=== PATIENT | male | born 1970 | race Caucasian/White ===

== ENCOUNTER 2020-07-31 10:25 | Outpatient (CLI) | payer OTHER, SELFPAY ==
--- NOTE | 2020-07-31 | ECG_ITS ---
Measurements Intervals [place] Rate: 58 P: 72 NC: 158 QRS: 77 QRSD: 84 T: 44 QT: 359 QTc: 355 Interpretive Statements SINUS BRADYCARDIA PEAKED T WAVES- CONSIDER HYPERKALEMIA OR ISCHEMIA ABNORMAL ECG Electronically Signed On 07-31-2020 12:19:16 CDT by Davidson Sanford D.O.
--- NOTE | 2020-07-31 | EST_ITS ---
Patient Info Name: Bk Mckinney Age: 49 years : 1970 Gender: Male HR: 60 bpm BP: 114 / 73 mmHg Heart Rhythm: Sinus Rhythm Exam Date: 07/31/2020 11:06 AM Exam Location: [facility] Stress Patient Status: Outpatient Admit Date: 07/31/2020 Staff Ordering Physician: Valeriano Torres MD Attending Provider: Valeriano Torres MD Exercise Technologist: Olive Bruce CT Exercise Physician: Davidson Sanford DO Exam Type: CA stress test treadmill Study Info Indications - MEDICATION CHANGE, FAMILY HISTORY An exercise stress test was performed. Summary 1. 1. Negative Talha exercise stress test for ischemic ST changes by ECG criteria. 2. 2. Good functional capacity, achieving 11 METs of workload. 3. 3. Appropriate HR response to exercise. 4. 4. Appropriate HR recovery at 1 minute post exercise. 5. 5. No imaging with stress testing. 6. 6. Patient informed of the above results. Protocol: Talha Rest HR: 60 bpm Peak HR: 154 bpm Rest Sys BP: 114 mmHg Peak Sys BP: 180 mmHg Max Pred HR: 169 bpm % Max Pred HR: 91 % Target HR: 144 bpm Max RPP: 27,720 bpm*mmHg Termination Reason: Reached target heart rate or workload Cardiac Symptoms: Shortness of breath Max ST Seg Deviation: -2.30 mm Total Time: 9 min : 43 sec Rest [place] BP: 73 mmHg Peak [place] BP: 88 mmHg Total METS: 11.5 Resting ECG Sinus rhythm. Stress ECG No ST changes. Arrhythmias None. Report Signatures
== END 2020-07-31 10:26 | disposition home or self-care (01) ==
PROVIDERS: PCP Internal Medicine; Visit Provider Internal Medicine
DX: R07.89 Other chest pain (principal); R00.1 Bradycardia, unspecified; Z82.49 Family history of ischemic heart disease and other diseases of the circulatory system
CPT/HCPCS: 93005; 93017

== ENCOUNTER 2021-06-14 12:16 | Outpatient (CLI) | payer BC, SELFPAY ==
--- NOTE | ~2021-06-14 | US_ITS ---
US right upper quadrant INDICATION: Abdominal pain PROCEDURE: Realtime right upper abdominal ultrasound. COMPARISON: No prior studies for comparison. FINDINGS: The pancreas is normal without focal mass or pancreatic ductal dilation. Liver echotexture is normal without focal mass or intrahepatic biliary dilatation. There is normal directional flow i n the portal vein. The gallbladder is normal without stones, gallbladder wall thickening or pericholecystic fluid. Comm on bile duct measures 3.3 mm. No sonographic Gaona's sign. IMPRESSION: 1: Normal limited abdominal ultrasound. Reviewed, dictated and finalized at location A. STRIAL CHEMIST
== END 2021-06-14 12:17 ==
PROVIDERS: Visit Provider Internal Medicine
DX: R10.11 Right upper quadrant pain (principal)
CPT/HCPCS: 76705

== ENCOUNTER 2021-06-22 08:40 | Outpatient (CLI) | payer BC, SELFPAY ==
--- NOTE | 2021-06-22 | EST_ITS ---
Patient Info Name: Bk Mckinney Age: 50 years : 1970 Gender: Male Ht: 66 in Wt: 135 lbs BSA: 1.69 m2 HR: 63 bpm BP: 133 / 86 mmHg Heart Rhythm: Sinus Rhythm Exam Date: 06/22/2021 9:14 AM Exam Location: [facility] Stress Patient Status: Outpatient Admit Date: 06/22/2021 Staff Ordering Physician: Valeriano Torres MD Attending Provider: Valeriano Torres MD Exercise Technologist: Olive Bruce CT Exercise Physician: Davidson Sanford DO Exam Type: CA stress test treadmill Study Info Indications R07.9 - Chest pain, unspecified A treadmill exercise stress test was performed. Summary 1. 1. Negative Talha exercise stress test for ischemic ST changes by ECG criteria. 2. 2. Reduced functional capacity, achieving 9 METs of workload. 3. 3. Appropriate HR response to exercise. 4. 4. Appropriate HR recovery at 1 minute post exercise. 5. 5. No imaging with stress testing. 6. 6. Patient informed of the above results. Protocol: Talha Stress ECG Details Stage: REST Duration (min): 0 min : 56 sec Speed (mph): 0.0 Grade (%): 0 HR (bpm): 64 SBP (mmHg): 133 DBP (mmHg): 86 METS: --- Stage: REST Duration (min): 5 min : 40 sec Speed (mph): 0.0 Grade (%): 0 HR (bpm): 72 SBP (mmHg): 133 DBP (mmHg): 86 METS: --- Stage: STAGE 1 Duration (min): 1 min : 0 sec Speed (mph): 1.7 Grade (%): 10 HR (bpm): 93 SBP (mmHg): 133 DBP (mmHg): 86 METS: --- Stage: STAGE 1 Duration (min): 2 min : 0 sec Speed (mph): 1.7 Grade (%): 10 HR (bpm): 103 SBP (mmHg): 133 DBP (mmHg): 86 METS: --- Stage: STAGE 1 Duration (min): 3 min : 0 sec Speed (mph): 1.7 Grade (%): 10 HR (bpm): 100 SBP (mmHg): 142 DBP (mmHg): 74 METS: --- Stage: STAGE 2 Duration (min): 1 min : 0 sec Speed (mph): 2.5 Grade (%): 12 HR (bpm): 115 SBP (mmHg): 142 DBP (mmHg): 74 METS: --- Stage: STAGE 2 Duration (min): 2 min : 0 sec Speed (mph): 2.5 Grade (%): 12 HR (bpm): 120 SBP (mmHg): 153 DBP (mmHg): 73 METS: --- Stage: STAGE 2 Duration (min): 3 min : 0 sec Speed (mph): 2.5 Grade (%): 12 HR (bpm): 133 SBP (mmHg): 153 DBP (mmHg): 73 METS: --- Stage: STAGE 3 Duration (min): 1 min : 0 sec Speed (mph): 3.4 Grade (%): 14 HR (bpm): 142 SBP (mmHg): 146 DBP (mmHg): 76 METS: --- Stage: STAGE 3 Duration (min): 1 min : 10 sec Speed (mph): 3.4 Grade (%): 14 HR (bpm): 145 SBP (mmHg): 146 DBP (mmHg): 76 METS: --- Stage: RECOVERY Duration (min): 0 min : 49 sec Speed (mph): 0.0 Grade (%): 0 HR (bpm): 138 SBP (mmHg): 146 DBP (mmHg): 76 METS: --- Stage: RECOVERY Duration (min): 1 min : 49 sec Speed (mph): 0.0 Grade (%): 0 HR (bpm): 116 SBP (mmHg): 146 DBP (mmHg): 76 METS: ---
== END 2021-06-22 08:41 | disposition home or self-care (01) ==
LOC: ANHCARD 08:48
PROVIDERS: PCP Internal Medicine; Visit Provider Internal Medicine
DX: R07.89 Other chest pain (principal)
CPT/HCPCS: 93017

== ENCOUNTER 2021-09-24 16:57 | Outpatient (CLI) | payer BC, SELFPAY ==
--- NOTE | ~2021-09-24 | XR_ITS ---
EXAM: XR hip RT min 2V DATE: 09/24/2021 17:36 HISTORY: ACUTE RIGHT SIDED LOW BACK PAIN WITH RIGHT SIDED SCIATICA . COMPARISON: None available. FINDINGS: Normal mineralization. No fracture or dislocation. No lytic or blastic lesion. Superior ri ght hip joint space narrowing with femoral head osteophytosis. No erosion or periosteal change. Multi ple pelvic phleboliths. IMPRESSION: Moderate right hip osteoarthritis. Reviewed, dictated and finalized at location K.
--- NOTE | ~2021-09-24 | XR_ITS ---
EXAM: XR lumbar spine 2-3V DATE: 09/24/2021 17:36 HISTORY: RT SIDE LOW BACK PAIN, RT SIDE SCIATICA X 1 WEEK NO INJ . COMPARISON: None available. FINDINGS: 5 nonrib-bearing lumbar-type vertebral bodies. Pedicles intact. Normal vertebral body alig nment. Vertebral body heights preserved. Mild disc space narrowing at L4-5 and L5-S1. Multilevel ghassan inal osteophytosis. Multilevel facet sclerosis and interspinous narrowing. No fracture or dislocation . IMPRESSION: Lower lumbar degenerative disc disease and facet arthropathy. Reviewed, dictated and finalized at location K.
== END 2021-09-24 16:58 | disposition home or self-care (01) ==
PROVIDERS: PCP Internal Medicine; Visit Provider Internal Medicine
DX: M16.11 Unilateral primary osteoarthritis, right hip (principal); M47.27 Other spondylosis with radiculopathy, lumbosacral region
CPT/HCPCS: 72100; 73502

== ENCOUNTER 2021-10-04 16:31 | Outpatient (CLI) | payer BC, SELFPAY ==
--- NOTE | ~2021-10-04 | MR_ITS ---
EXAMINATION: MR lumbar spine wo con DATE: 10/04/2021 17:07 INDICATION: Acute right-sided low back pain with right-sided sciatica. TECHNIQUE: Magnetic resonance imaging (MRI) of the lumbar spine was performed without intravenous con trast. Sequences included sagittal T2-weighted FSE, sagittal T2-weighted FS FSE, sagittal T1-weighted FSE, and axial T2-weighted FSE. COMPARISON: Lumbar spine radiographs 09/24/2021 FINDINGS: Bone alignment is normal. Vertebral body heights and intervertebral disc heights are normal . There is moderately decreased disc height at L4-L5 and L5-S1 with endplate remodeling. The distal s homero cord signal intensity is normal. The conus medullaris is at L1-L2. The following disc levels ar e specifically discussed: L1-L2: The disc does not extend beyond the endplate margin. There is mild right and moderate left fac et joint osteoarthritis. There is no neural foraminal stenosis. There is no central canal stenosis. L2-L3: The disc does not extend beyond the endplate margin. There is moderate bilateral facet joint o steoarthritis. There is no neural foraminal stenosis. There is no central canal stenosis. L3-L4: The disc is bulging. There is moderate bilateral facet joint osteoarthritis. There is mild clara ateral neural foraminal stenosis. There is mild central canal stenosis. L4-L5: The disc is bulging and has an annular fissure. There is moderate right and severe left facet joint osteoarthritis. There is moderate bilateral neural foraminal stenosis. There is mild central ca nal stenosis. There is moderate stenosis of right lateral recess. L5-S1: The disc is bulging. There is mild bilateral facet joint osteoarthritis. There is no neural fo raminal stenosis. There is mild central canal stenosis. IMPRESSION: 1. Moderate lower lumbar spondylosis. Reviewed, dictated and finalized at location A.
== END 2021-10-04 16:32 | disposition home or self-care (01) ==
PROVIDERS: PCP Internal Medicine; Visit Provider Internal Medicine
DX: M54.41 Lumbago with sciatica, right side (principal); R53.83 Other fatigue; M47.817 Spondylosis without myelopathy or radiculopathy, lumbosacral region; M48.07 Spinal stenosis, lumbosacral region
CPT/HCPCS: 72148

== ENCOUNTER 2021-12-21 09:00 | Outpatient (RCR) | payer BC, MEDICAID, SELFPAY ==
--- NOTE | 2021-11-13 15:30 | PTOPEVAL ---
Thank you for referring Bk Mckinney to [facility].? He is scheduled to be seen for therapy? 2 x/week for 4 weeks. Please review, sign, date and return this plan of care [facility]. I agree with and certify that the following plan of care is medically necessary. Referring Physician Date Attending Provider: Valeriano Torres MD Outpatient Past Medical History Past Medical History Source of Past Medical History Recalled from Previous Visit, Confirmed with Patient/Family Neurological History Hx Migraine Yes: med Hx Seizures Yes: med control, not had in 7 yr Cardiovascular History Hx Cardiac Disorders No Significant History Respiratory History Hx COVID-19 Yes: hospitalized; Gastrointestinal History Hx Crohn's Disease Yes Musculoskeletal History Hx Musculoskeletal Disorders No Significant History Endocrine History Hx Endocrine Disorders No Significant History Psychosocial History Hx Other Psychiatric Disorders Yes: OCD, recovering alcoholic Other History Hx Cancer Yes: bladder - surgery 2019; colon cancer 2019; Hx Chemotherapy Yes: completed treatment 2 wk ago Hx Radiation Therapy Yes: completed Evaluation Information Diagnosis low back pain with R sciatica Onset September 26, 2021 Subjective Information post covid, pain and fatigue Query Text:As Reported By Patient/ over entire body; then pain R Family sciatica pain to foot; Diagnostic Tests MRI For This Problem Yes: lumbar bulging disc with facet OA Previous Treatments Previous Treatments For This Problem no PT treatment Prior Level of Function 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, 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
--- NOTE | 2021-11-22 09:03 | PCPTNOTE ---
Patient called & cancelled 2 scheduled appointment this date due to having back injection, and will return on 11/30/21.
--- NOTE | 2021-11-30 09:11 | PCPTNOTE ---
Patient called & cancelled scheduled appointment this date due to having a fever.
--- NOTE | 2021-12-07 13:21 | PTOPEVAL ---
PHYSICAL THERAPY RE-EVALUATION AND UPDATED PLAN OF CARE 12-06-21 Refer to the clinical summary below, for his status today, compared to the initial evaluation. The goals were partially achieved. Continue PT treatment 2x/wk for 4 weeks. Thank you for referring Bk Mckinney to [facility].? Please review, sign, date and return this updated plan of care [facility]. I agree with and certify that the following plan of care is medically necessary. Referring Physician Date Attending Provider: Valeriano Torres MD Subjective Information Bk reports: to have back Query Text:As Reported By Patient/ injections next week; am Family moving forward with improving my back; using the cane helps ; doing the exercises and they are helping; has returned to driving; want to continue therapy; Pain Assessment Pain Scale Pain Scale Used Numeric (1 - 10) Self Report Pain Assessment Right Back Pain Description Sharp Radicular Pain Location tingling in R distal-lateral calf- intermittent Pain Frequency Chronic,Continuous Lowest Pain Intensity 4 Greatest Pain Intensity 7 Pain Aggravating Factors Exercise/Activity,Walking, Weight Bearing/Standing Other Pain Aggravating Factors reported walk/stand tolerance of 2 hours; Additional Pain Score Comments Oswestry self assessment of 30% limitation in activity Interventions Used Interventions Used By Clinicians Education,Exercise Pain Relief Interventions Used By Exercise,Medication,Position Patient Change,Sitting Other Alleviating Interventions pain meds daily; stretch trunk forward, take deep breaths Lumbar ROM Comments standing trunk: flexion- fingers to below knee- without an increase in pain, any further reach- pain and stretch in R low back; Lower Extremity Range of Motion General Lower Extremity Range of Motion Gross Lower Extremity Range of Motion supine R hip flexion to 105'- Comments no pain increase, but 120'- increase back pain; IR increase pain; ER no pain increase; prone on elbows does not increase pain, stated feels good; Gross Lower Extremity Strength functional strength testing: - supine: SLR R 20 /L 20 reps; bridge - small lift x 20 reps - with full lift, increase
--- NOTE | 2021-12-07 13:29 | PCPTNOTE ---
pt was seen for PT 3x this week due to scheduling conflict and he was not able to make the original reeval appt next week due to dr appt and back injections, so reeval performed early and done this week/ today, causing the 3rd session for the week.
--- NOTE | 2021-12-24 13:16 | PCPTNOTE ---
Patient called & cancelled scheduled appointment this date due to being to sore from starting back to work.
--- NOTE | 2021-12-26 15:43 | PCPTNOTE ---
Patient called & cancelled scheduled appointment this date due to having hives/rash, and he was told by his Dr, to stay home to rest this afternoon.
--- NOTE | 2021-12-31 13:54 | PCPTNOTE ---
Patient called & cancelled scheduled appointment this date due to being admitted into the hospital.
--- NOTE | 2022-01-02 14:18 | PCPTNOTE ---
PHYSICAL THERAPY DISCHARGE 01-02-22 Attending Provider: Valeriano Torres MD Patient:kB cMkinney Date of :1970 Bk has received 9 PT sessions, for the diagnosis of low back pain, from November 13 to ; he then called/canceled 2 appointments, due to being ill. He called 12-31-21 and canceled all remaining appointments due to additional medical issues and referred to cancer dr in [facility]. The goals were not addressed. Thank you for referring Bk to [facility].
== END 2022-01-02 15:23 | disposition home or self-care (01) ==
LOC: ANHPT 09:00
PROVIDERS: PCP Internal Medicine; Visit Provider Internal Medicine
DX: M54.41 Lumbago with sciatica, right side (principal)
CPT/HCPCS: 97110; 97112; 97140; 97161

== ENCOUNTER 2021-12-27 15:47 | Outpatient (CLI) | payer BC, MEDICAID, SELFPAY ==
--- NOTE | ~2021-12-27 | XR_ITS ---
EXAMINATION: XR knee LT 2V DATE: 12/27/2021 16:22 INDICATION: Anterior left knee pain. TECHNIQUE: 2 views of left knee were obtained. COMPARISON: None. FINDINGS: Bone alignment is normal. No fracture. Joint spaces are well maintained. There is no knee j oint effusion. IMPRESSION: 1. Normal left knee. Reviewed, dictated and finalized at location A. IMPRESSION: 1. Normal left knee.
== END 2021-12-27 15:48 | disposition home or self-care (01) ==
PROVIDERS: PCP Internal Medicine; Visit Provider Internal Medicine
DX: M25.562 Pain in left knee (principal)
CPT/HCPCS: 73560

== ENCOUNTER 2022-01-16 11:32 | Outpatient (RCR) | payer BC, MEDICAID, SELFPAY ==
[2022-01-16 12:22] VITALS: BMI 22.6
--- NOTE | 2022-02-06 09:03 | PCWOUND ---
CWON NOTE patient called to cancel appointment due to another Dr appointment at the same time. Will reschedule for later date.
== END 2022-04-01 08:11 | disposition home or self-care (01) ==
LOC: ANHWOC 11:32
PROVIDERS: PCP Internal Medicine; Visit Provider Internal Medicine
DX: L88 Pyoderma gangrenosum (principal)
CPT/HCPCS: 99213; G0463

== ENCOUNTER 2022-04-11 12:38 | Inpatient (IN) | payer BC, MEDICAID, SELFPAY ==
--- NOTE | ~2022-04-11 | CT_ITS ---
Non-contrast Head CT History: CVA Technique: Axial non-contrast imaging of the brain was performed. Dose reduction technique was used on this scan by utilizing automated exposure control and iterative reconstruction technique. The dose -length product (DLP) was 605.33 mGy-cm. Findings: There is no evidence of intracranial hemorrhage, mass lesion, or acute infarct. Brain par enchyma appears normal. The ventricles and subarachnoid spaces are normal in size. The calvarium ap pears normal. The visualized paranasal sinuses and mastoid air cells are clear. Impression: No significant abnormality seen. Case discussed with Dr. Odom at 1:10 PM on 04/11/2022. Reviewed, dictated and finalized at location . 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 Case discussed with Dr. Odom at 1:10 PM on 04/11/2022.
--- NOTE | ~2022-04-11 | US_ITS ---
EXAMINATION: US carotid duplex BI DATE: 04/11/2022 17:40 INDICATION: Transient ischemic attack. Diplopia. TECHNIQUE: Grayscale, color Doppler, and pulsed Doppler images of the cervical carotid arteries were obtained. The degree of vessel stenosis is placed in one of the following categories: normal, <50%, 5 0-69%, >=70% but less than near-occlusion, near-occlusion, or total occlusion. Note that percent sten osis relative to normal distal artery lumen diameter is indirectly measured from velocity measurement s as described by Pavel, et al. Radiology 2003; [id number]:[id number]. COMPARISON: None. FINDINGS: RIGHT: The right common carotid artery (CCA) peak systolic velocity (PSV) is 82 cm/s. The right internal car otid artery (ICA) PSV is 96 cm/s. The right ICA end-diastolic velocity (EDV) is 31 cm/s. The right IC A/CCA PSV ratio is 1.2. Grayscale and color Doppler images yield an estimate of 0% diameter reduction from plaque in the ICA. There is antegrade flow in the right vertebral artery. LEFT: The left CCA PSV is 82 cm/s. The left ICA PSV is 95 cm/s. The left ICA EDV is 21 cm/s. The left ICA/C CA PSV ratio is 1.1. Grayscale and color Doppler images yield an estimate of 0% diameter reduction fr om plaque in the ICA. There is antegrade flow in the left vertebral artery. IMPRESSION: 1. Normal internal carotid arteries. Reviewed, dictated and finalized at location A. MOBILE LOCATOR
--- NOTE | ~2022-04-11 | XR_ITS ---
EXAMINATION: XR chest 1V portable DATE: 04/11/2022 15:09 INDICATION: Stroke TECHNIQUE: frontal view of the chest was obtained. COMPARISON: None FINDINGS: Airspace opacities in the left lower lung zone. No pleural effusion or pneumothorax. The cardiomedias tinal silhouette is normal. Left subclavian central venous port catheter with distal tip near the sup erior cavoatrial junction. IMPRESSION: 1. Mild opacities in the left lower lung zone suspicious for pneumonia with differential including at electasis or mild asymmetric pulmonary edema. Reviewed, dictated and finalized at location A. STERED NURSE STEP DOWN IMPRESSION: 1. Mild opacities in the left lower lung zone suspicious for pneumonia with dif ferential including atelectasis or mild asymmetric pulmonary edema.
--- NOTE | ~2022-04-11 | MR_ITS ---
MRI of the brain Clinical History: Double vision Technique: Axial and sagittal T1-weighted images were acquired. These were followed by axial T2-weigh shaheen, diffusion weighted, gradient, and FLAIR images. Following intravenous administration of 12 cc Mu ltiHance gadolinium, T1-weighted fat-sat imaging was performed in the axial and coronal planes. Findings: There is probable subtle focal restricted diffusion in the left paramedian deni, suspicious for small pontine infarct. No other abnormal signal seen in the remainder of the brain. No intracran ial hemorrhage or mass lesion. Ventricles and subarachnoid spaces are unremarkable. Orbits are unremarkable. Paranasal sinuses are c lear. Major intracranial flow voids are intact. Sagittal midline structures are intact. No abnormal postcontrast enhancement identified. IMPRESSION: Suspected subtle focal left paramedian pontine infarct. Reviewed, dictated and finalized at location . 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
[2022-04-11 12:49] VITALS: BP 131/95; PULSE 66; RESP 16; TEMP 36.9; O2SAT 99
--- NOTE | 2022-04-11 12:57 | ECG_ITS ---
Measurements Intervals [place] Rate: 61 P: 53 AK: 154 QRS: -4 QRSD: 90 T: 12 QT: 376 QTc: 380 Interpretive Statements SINUS RHYTHM COMPARED TO ECG 07/31/2020 11:01:51 SINUS RHYTHM NOW PRESENT Electronically Signed On 04-11-2022 15:03:47 BLASTER HELPER by Niall Donald M.D.
--- NOTE | 2022-04-11 13:16 | PC.NURSE ---
blood glucose was 103
[2022-04-11 13:19] LABS: Glucose Point of Care 103 mg/dl (65-105)
--- NOTE | 2022-04-11 13:26 | ED.GENADULT ---
HPI - General Adult General Chief complaint: Neuro Symptoms/Deficit Stated complaint: speech problems Time Seen by Provider: 04/11/22 13:25 Source: RN notes reviewed History of Present Illness HPI narrative: Patient presents emergency department from work for neurologic changes. Patient states symptoms began approximate 945 this morning. He states he began to notice some blurred vision that improved if he closed his left eye and only left out of his right eye he states that following this he had some involuntary movements of his right leg and his left leg at different times states he does not fully remember the symptoms and these were noted by his colleagues and he does not have full memory of exactly what happened he denies having loss of bowel or bladder he states he then noticed some involuntary movements of his mouth patient does have a seizure disorder and is on Depakote he states he is due for his Depakote level to be checked and is followed by his PCP but does not see neurology. He states he has had some intermittent tingling in his left arm and leg but he states that tingling is resolved this time and he also states double vision is resolved states that times because of the involuntary movement of his mouth he has little difficulty speaking but is awake and alert x4 he denies any weakness of the arms or the legs he denies any bowel or bladder incontinence Related Data Home Medications Medication Instructions Recorded Confirmed bupropion HCl 300 mg 24 hr tablet, 300 mg PO QAM 01/16/22 04/11/22 extended release buspirone 10 mg tablet 10 mg PO TID 01/16/22 04/11/22 divalproex 500 mg tablet,extended 500 mg PO DAILY 01/16/22 04/11/22 release 24 hr fluvoxamine 100 mg 150 mg PO QHS 01/16/22 04/11/22 capsule,extended release 24 hr lisdexamfetamine 30 mg capsule 30 mg PO QAM 01/16/22 04/11/22 (Vyvanse) mesalamine 800 mg tablet,delayed 1,600 mg PO TID 01/16/22 04/11/22 release ondansetron 4 mg oral soluble film 4 mg PO DAILY PRN Nausea And 01/16/22 04/11/22 Vomiting pregabalin 150 mg capsule 150 mg PO BID 01/16/22 04/11/22 primidone 250 mg tablet 250 mg PO QID PRN Seizure Activity 01/16/22 04/11/22 sildenafil 100 mg tablet 100 mg PO DAILY PRN Sexual Activity 01/16/22 04/11/22 tamsulosin 0.4 mg capsule 0.4 mg PO DAILY 01/16/22 04/11/22 trazodone 50 mg tablet 50 mg PO HS 01/16/22 04/11/22 Flonase 1 spray EACH NARE TID 04/11/22 04/11/22 Suboxone See Rx Instructions .Route .COMPLEX 04/11/22 04/11/22 divalproex 250 mg tablet,extended 250 mg PO QHS 04/11/22 04/11/22 release 24 hr Allergies Allergy/AdvReac Type Severity Reaction Status Date / Time Corticosteroids Allergy Severe Anaphylactic Verified 01/16/22 12:47 (Glucocorticoids) Shock adhesive tape AdvReac Mild Rash Verified 01/16/22 12:47 Review of Systems Review of Systems: Gen.: Denies fevers or chills Eyes: see HPI ENT: Denies congestion Respiratory: Denies shortness of breath or cough CV: Denies chest pain or palpitations GI: Denies abdominal pain nausea, emesis or diarrhea denies incontinence Musculoskeletal: Denies back pain or muscle pain Neuro: See HPI Skin: Denies rash Except as documented, all other systems reviewed and negative [facility] Past Medical History Medical History (Updated 04/11/22 @ 20:59 by Bishnu Odom DO) BPH (benign prostatic hyperplasia) Chronic pain Crohn disease Depression with anxiety Neuropathy Port-A-Cath in place Seizure Tremors of nervous system Surgical History Surgical History (Updated 04/11/22 @ 18:58 by Antonietta Lunsford NP) History of insertion of tunneled central venous catheter (CVC) with port Family History Family History (Updated 04/11/22 @ 16:29 by Antonietta Lunsford NP) Father Acute myocardial infarction Mother Hypertension Aortic dissection Social History Social History (Updated 04/11/22 @ 18:59 by Antonietta Lunsford NP) Social History: He lives alone. He has no children. He is
[2022-04-11 13:40] LABS: Alanine Aminotransferase 15 U/L (6-50); Albumin Level 4.5 g/dL (3.5-5.1); Alkaline Phosphatase 67 U/L (38-126); Anion Gap 7 mmol/L (8-16); Aspartate Amino Transferase 37 U/L (17-59); Bilirubin,Total 0.3 mg/dL (0.2-1.3); Blood Urea Nitrogen 12 mg/dL (9-20); Calcium 8.5 mg/dL (8.4-10.2); Carbon Dioxide 28 mmol/L (22-30); Chloride 94 mmol/L (98-107); Estimated CRCL calculation 94 ml/min; Estimated Glomerular Filt Rate > 60; Glucose 96 mg/dL (65-110); Potassium 4.1 mmol/L (3.4-5.0); Sodium 129 mmol/L (137-145)
[2022-04-11 13:41] LABS: Basophils Absolute Auto 0.1 K/mm3 (0.0-0.1); Basophils Percent Auto 0.6 % (0.2-1.2); Eosinophils Absolute Auto 0.2 K/mm3 (0-0.3); Eosinophils Percent Auto 2.1 % (0-4.4); Hematocrit 38.2 % (42.0-52.0); Hemoglobin 13.3 g/dL (14.0-18.0); Immature Granulocyte Absolute 0.02 K/mm3 (0.00-0.031); Immature Granulocyte Percent A 0.2 % (0-0.5); Lymphocytes Absolute Auto 2.76 K/mm3 (0.9-3.2); Lymphocytes Percent Auto 33.5 % (18.3-44.2); Mean Corpuscular HGB Conc 34.8 g/dl (32-36); Mean Corpuscular Hemoglobin 32.6 pg (26-34); Mean Corpuscular Volume 93.6 fl (80-100); Mean Platelet Volume 8.6 fl (7.4-10.4); Monocytes Absolute Auto 0.9 K/mm3 (0.1-0.6); Monocytes Percent Auto 11.3 % (2.6-8.5); Neutrophils Absolute Auto 4.3 K/mm3 (1.3-6.7); Neutrophils Percent Auto 52.3 % (45.5-73.1); Platelet Count Result 357 k/mm3 (150-375); Red Blood Count 4.08 M/mm3 (4.6-6.20); Red Cell Distribution Width 12.3 % (11.5-14.5); White Blood Count 8.3 K/mm3 (4.5-10.0)
[2022-04-11 13:45] LABS: INR 1.1; Prothrombin Time 13.3 Seconds (11.1-14.7)
[2022-04-11 13:47] LABS: Partial Thromboplastin Time 30.5 SECONDS (22.3-36.8)
[2022-04-11 13:48] LABS: Troponin I < 0.012 ng/mL (0.000-0.034)
[2022-04-11] MEDS: diphenhydrAMINE HCl INJ 50 MG/ML VIAL 25 MG IV PUSH (13:58)
[2022-04-11 16:23] LABS: Influenza A QL RT-PCR Negative (Negative); Influenza B QL RT-PCR Negative (Negative); RSV RNA, RT-PCR Negative (Negative); SARS-CoV-2 RNA PCR Negative
--- NOTE | 2022-04-11 16:28 | PM.IMHP ---
H&P: HPI History of Present Illness Date/Time: 04/11/22 16:28 Chief Complaint: Neuro symptoms Narrative: This is a 51-year-old male patient who has a history of seizures. The patient stated that his symptoms began around 945 this morning. He started to notice blurred vision and double vision as well. The patient is having slurred speech. He is having word searching. The patient began to cry because he is having difficulty finding his words and is having difficulty with his memory. The patient does have tremors. The patient is having some involuntary movements in his legs and also to his face. Patient has some intermittent tingling in his left arm and left leg but states that he is able to move it without difficulty. Patient stated he is having difficulty remembering things today. He stated that not able to function at work. H&H is 13.3 and 38.2. Sodium is 129. Valproic acid is 42. Influenza A/B RSV and COVID are all negative. Carotid Dopplers normal internal carotid arteries. Chest x-ray was read as mild opacities in the left lower lung zones consists patient's for pneumonia with differential including atelectasis or mild asymmetric pulmonary edema. Head CT was read as no significant abnormality seen. Neurology has been consulted. The patient was given Benadryl in the Emergency Department as the patient appears quite anxious. The patient is being admitted to observation status on the date of service of 04/11/2022. Review of Systems Review of Systems: See HPI All systems reviewed & are unremarkable except as noted in HPI and below Constitutional: Constitutional: Reports as per HPI and Reports no additional constitutional complaints Eyes: Eyes: Reports as per HPI and Reports no additional eye complaints ENT: Reports system reviewed and no additional complaints, except as documented and Reports Normal hearing present Cardiovascular: Cardiovascular: Reports no additional cardiovascular complaints Respiratory: Respiratory: Reports no additional respiratory complaints and Reports no additional respiratory complaints Gastrointestinal: Gastrointestinal: Reports as per HPI and Reports no additional gastrointestinal complaints Musculoskeletal: Musculoskeletal: Reports no additional musculoskeletal complaints Integumentary/Breasts: Skin/Breast: Reports system reviewed and no additional complaints, except as docu and Reports as per HPI Neurologic: Reports system reviewed and no additional complaints, except as documented, Reports as per HPI and Reports Normal hearing present Psychiatric: Psychiatric: Reports no additional psychiatric complaints and Reports as per HPI Endocrine: Endocrine: Reports no additional endocrine complaints Hematologic/Lymphatic: Hematologic/Lymphatic: Reports no additional hematologic/lymphatic complaints Allergic/Immunologic: Allergic/Immunologic: Reports no additional allergic/immunologic complaints [facility] Past Medical History Medical History (Updated 04/11/22 @ 18:58 by Antonietta Lunsford NP) BPH (benign prostatic hyperplasia) Chronic pain Crohn disease Depression with anxiety Neuropathy Port-A-Cath in place Seizure Tremors of nervous system Surgical History Surgical History (Updated 04/11/22 @ 18:58 by Antonietta Lunsford NP) History of insertion of tunneled central venous catheter (CVC) with port Family History Family History (Updated 04/11/22 @ 16:29 by Antonietta Lunsford NP) Father Acute myocardial infarction Mother Hypertension Aortic dissection Social History Social History (Updated 04/11/22 @ 18:59 by Antonietta Lunsford NP) Social History: He lives alone. He has no children. He is single. 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 His sister javon is his durable power business attorney for healthcare. He is a recovering alcoholic and does occasionally use THC. He is a former smoker. Code status full code Smoking status: Former smoker Meds Home Medications and All
[2022-04-11] MEDS: MESALAMINE 400 MG DELAYED RELEASE CAPSULE 1600 MG PO (17:50)
[2022-04-11] MEDS: PRIMIDONE 12.5 MG TABLET PO (17:50)
[2022-04-11] MEDS: busPIRone HCL 10 MG TABLET PO (17:51)
[2022-04-11 19:56] VITALS: BMI 22.7
[2022-04-11 20:00] VITALS: PULSE 76
[2022-04-11 20:20] LABS: Troponin I < 0.012 ng/mL (0.000-0.034)
--- NOTE | 2022-04-11 20:35 | ADMGEN ---
This patient, Bk Mckinney, was admitted to 2 Medical Room 255-. Patient/family oriented to hospital policies and general routines including ID bracelet, bed and alarms, visiting hours, pain management, procedures, bathroom and other care routines, personal items, smoking policy, room service/diet, and visiting hours. Information on how to activate the Rapid Response Team has been discussed. Patient/Family are encouraged to report perceived risks to care and to ask questions if they do not understand what they are told or what they should do.
[2022-04-11 22:42] VITALS: BP 113/66; PULSE 75; RESP 16; TEMP 37.2; O2SAT 94
[2022-04-11] MEDS: BUPRENORPHINE HCL (*CRX) 2 MG SUBLINGUAL TABLET PO (23:14)
[2022-04-11] MEDS: DIVALPROEX SODIUM ER 250 MG TAB.24H PO (23:15)
[2022-04-11] MEDS: traZODone HCL 50 MG TABLET PO (23:16)
[2022-04-11] MEDS: FLUTICASONE PROPIONATE 0.05% NA SPR 16 GM BTL (*BKC) 1 SPRAY NASAL (23:16)
[2022-04-12] VITALS (9 sets, daily range): BP systolic 96–119; BP diastolic 55–77; PULSE 55–66; RESP 16–20; TEMP 36.5–36.7; O2SAT 93–98
--- NOTE | 2022-04-12 | ECHO_ITS ---
Patient Info Name: Bk Mckinney Age: 51 years : 1970 Gender: Male Ht: 65 in Wt: 138 lbs BSA: 1.70 m2 HR: 58 bpm BP: 113 / 66 mmHg Heart Rhythm: Sinus Rhythm Technical Quality: Fair Exam Date: 04/12/2022 8:00 AM Exam Location: [facility] Pulmonary Patient Status: Inpatient Admit Date: 04/11/2022 Staff Ordering Physician: Antonietta Lunsford NP Certified Orthotist: Marylin Gomes RDCS Attending Provider: Alonzo Monk MD Referring Physician: Isatu ANDERSON; Exam Type: CA echo doppler color flow Study Info Indications - dtplopia Complete two-dimensional, color flow and Doppler transthoracic echocardiogram is performed. Summary 1. Complete two-dimensional, color flow and Doppler transthoracic echocardiogram is performed. 2. Completely unremarkable 2D M-mode echocardiogram. Left Ventricle Left ventricular chamber dimension is normal. Left ventricular systolic function is normal, estimated at 60-65%. The left ventricular diastolic function is normal. Right Ventricle Right ventricular chamber dimension is normal. Left Atria Left atrial chamber dimension is normal. Right Atria Right atrial chamber dimension is normal. Aortic Valve The aortic valve is normal. Pulmonic Valve The pulmonic valve is normal. Mitral Valve The mitral valve has normal leaflets. Tricuspid Valve The tricuspid valve leaflets are normal. Pericardium/Pleural The pericardium appears normal. Aorta The aortic root size at the sinus of Valsalva is normal. Left Ventricular Outflow Tract Name Value Normal LVOT 2D LVOT Diameter 2.0 cm LVOT Doppler LVOT Peak Gradient 6 mmHg LVOT Mean Gradient 3 mmHg LVOT VTI 25 cm LVOT VTI/AV VTI Ratio 0.8 LVOT Stroke Volume 75 ml LVOT CO 4.0 l/min LVOT CI 2.4 l/min/m2 Pulmonic Valve Name Value Normal PV Doppler PV Peak Gradient 5 mmHg Mitral Valve Name Value Normal MV Doppler MV Decel [place] 454 cm/s2 MV PHT 49 ms MV Area (PHT) 4.5 cm2 4.0-5.0 MV Diastolic Function MV E Peak Velocity 76 cm/s MV A Peak Velocity 31 cm/s MV E/A 2.4 MV Decel Time 1
[2022-04-12] MEDS: ACETAMINOPHEN 500 MG TABLET 1000 MG PO (05:43)
[2022-04-12 05:46] LABS: Basophils Percent Auto 0.4 % (0.2-1.2); Eosinophils Absolute Auto 0.1 K/mm3 (0-0.3); Eosinophils Percent Auto 1.2 % (0-4.4); Hematocrit 39.1 % (42.0-52.0); Immature Granulocyte Absolute 0.04 K/mm3 (0.00-0.031); Immature Granulocyte Percent A 0.4 % (0-0.5); Lymphocytes Absolute Auto 1.55 K/mm3 (0.9-3.2); Lymphocytes Percent Auto 17.2 % (18.3-44.2); Mean Corpuscular HGB Conc 33.2 g/dl (32-36); Mean Corpuscular Hemoglobin 31.7 pg (26-34); Mean Corpuscular Volume 95.4 fl (80-100); Mean Platelet Volume 8.6 fl (7.4-10.4); Monocytes Absolute Auto 1.2 K/mm3 (0.1-0.6); Monocytes Percent Auto 13.8 % (2.6-8.5); Platelet Count Result 293 k/mm3 (150-375); Red Cell Distribution Width 12.5 % (11.5-14.5)
[2022-04-12 05:57] LABS: Alanine Aminotransferase 13 U/L (6-50); Alkaline Phosphatase 59 U/L (38-126); Anion Gap 5 mmol/L (8-16); Aspartate Amino Transferase 31 U/L (17-59); Bilirubin,Total 0.7 mg/dL (0.2-1.3); Blood Urea Nitrogen 11 mg/dL (9-20); Calcium 8.3 mg/dL (8.4-10.2); Carbon Dioxide 29 mmol/L (22-30); Chloride 96 mmol/L (98-107); Estimated CRCL calculation 84 ml/min; Estimated Glomerular Filt Rate > 60; Glucose 96 mg/dL (65-110); Potassium 4.2 mmol/L (3.4-5.0); Sodium 130 mmol/L (137-145)
[2022-04-12] MEDS: TAMSULOSIN HCL 0.4 MG CAPSULE PO (09:17)
[2022-04-12] MEDS: busPIRone HCL 10 MG TABLET PO ×3 (09:17→16:31)
[2022-04-12] MEDS: BUPRENORPHINE HCL (*CRX) 2 MG SUBLINGUAL TABLET PO ×2 (09:18→16:31)
[2022-04-12] MEDS: PREGABALIN (*CRX) 75 MG CAPSULE 150 MG PO ×2 (09:18→22:24)
[2022-04-12] MEDS: buPROPion HCL XL (24 HR) 150 MG TABCR 300 MG PO (09:19)
[2022-04-12] MEDS: DIVALPROEX SODIUM ER 500 MG TAB.24H PO (09:19)
[2022-04-12] MEDS: MESALAMINE 400 MG DELAYED RELEASE CAPSULE 1600 MG PO ×3 (09:20→16:32)
--- NOTE | 2022-04-12 12:13 | WPDNEURCNPN ---
Assessment and Plan Assessment and plan (1) Seizure: Code(s): R56.9 - Unspecified convulsions Status: Acute Plan 51 years old with history of seizures subsequently having difficulties in speech along with the involuntary movements initial valproic acid level 42 eeg normal with no evidence of active paroxysmal discharge patient is receiving multiple medications in addition to Depakote 750 mg daily MRI reveals only left paramedian pontine subtle infarct Doppler studies of the carotid are normal will obtain the echocardiogram with bubble study for further recommendations. Consult date: 04/12/22 HPI: Bk Mckinney is a 51 year old male admitted to the hospital through the emergency room for the complaints of blurred vision that improved after he closed his left eye with subsequent development of involuntary movements of his right lower extremity and left lower extremity at different times these abnormal movements were noted by the cold leaks he gave no history of associated bowel or bladder dysfunction and incontinence though he did notice involuntary movements of his mouth. Patient is known to have seizure disorder and has been on Depakote he also complained of intermittent tingling in his left upper extremity by the time he came to the emergency room he was awake alert oriented x4 and he gave no history of incontinence of bowel or bladder. His outpatient medications included Wellbutrin 300 mg daily with BuSpar 10 mg 3 times a day divalproex 500 mg extended release daily fluvoxamine 150 mg at night and Vyvanse 30 mg daily in addition to mesalamine 1600 mg 3 times a day pregabalin 150 mg twice a day primidone 250 mg q.i.d. p.r.n. trazodone 50 mg at night Suboxone. Patient does have ongoing history of chronic pain with anxiety and depression underlying neuropathy and seizure disorder, is a former smoker former alcohol intake and initial examination in the emergency room were grossly nonfocal, evaluation revealed normal vital signs normal lab with sodium 129 and valproic acid of 42.[address] scan of the head his stroke scale of 1, brain MRI showing only suspected subtle focal left paramedian pontine infarct Review of Systems Review of Systems: All systems reviewed & are unremarkable except as noted in HPI and below PMFSH Past Medical History Medical History (Updated 04/11/22 @ 20:59 by Bishnu Odom DO) BPH (benign prostatic hyperplasia) Chronic pain Crohn disease Depression with anxiety Neuropathy Port-A-Cath in place Seizure Tremors of nervous system Surgical History Surgical History (Updated 04/11/22 @ 18:58 by Antonietta Lunsford NP) History of insertion of tunneled central venous catheter (CVC) with port Family History Family History (Updated 04/11/22 @ 16:29 by Antonietta Lunsford NP) Father Acute myocardial infarction Mother Hypertension Aortic dissection Social History Social History (Updated 04/11/22 @ 18:59 by Antonietta Lunsford NP) Social History: He lives alone. He has no children. He is single. He is the [employer] at [employer]. His sister javon is his durable power regulatory attorney for healthcare. He is a recovering alcoholic and does occasionally use THC. He is a former smoker. Code status full code Smoking status: Former smoker Tobacco type: cigarettes Second hand tobacco smoke exposure: No Alcohol intake: former Substance use type: prescription drug Other substance usage details: thc/ cbd gummies Lack of Transportation: No Lack of Food: Never True Current Housing: I Have Housing Concerned About Future Housing: No Difficulty Paying Gas/Electric Bills: No Difficulty Paying for Meds: No Currently Unemployed: No Education: High School Diploma/GED Difficulty w/ Childcare or Family Care: No Spiritual care concerns: No Meds Home Medications and Allergies Home Medications Medication Instructions Recorded Confirmed Type bupropion HCl 300 mg 24
--- NOTE | 2022-04-12 12:45 | PM.IMPN ---
Progress Note: A&P Assessment and Plan (1) Seizure: Code(s): R56.9 - Unspecified convulsions Status: Acute Assessment and Plan: -neurology to see the patient -eeg has been ordered. -Ativan p.r.n. for seizures -valporic acid level was slightly low at 42. -continue with primidone (2) Depression with anxiety: Code(s): F41.8 - Other specified anxiety disorders Status: Acute Assessment and Plan: -continue with BuSpar and bupropion -until we can get his home medications reconciled. I started him on p.r.n. hydroxyzine (3) Crohn disease: Code(s): K50.90 - Crohn's disease, unspecified, without complications Status: Acute Assessment and Plan: -continue with Mesalamine (4) Neuropathy: Code(s): G62.9 - Polyneuropathy, unspecified Status: Acute Assessment and Plan: -continue with gabapentin if patient is still on that medication. (5) BPH (benign prostatic hyperplasia): Code(s): N40.0 - Benign prostatic hyperplasia without lower urinary tract symptoms Status: Acute Assessment and Plan: -continue with tamsulosin (6) Tremors of nervous system: Code(s): R25.1 - Tremor, unspecified Status: Acute Assessment and Plan: -continue with home medications. (7) Chronic pain: Code(s): G89.29 - Other chronic pain Status: Acute Assessment and Plan: The patient stated that he is on methadone. Once we have the medications verify then we can restart that. Subjective Date/time seen: 04/12/22 12:45 No new complaints Exam Const: General: cooperative, comfortable, no acute distress, well developed, alert, awake, Physically active, ill appearing, average body habitus and well nourished Nutritional Appearance: average body habitus and well nourished Orientation/consciousness: oriented to person, oriented to place, oriented to time and patient oriented x3 Limitations: no limitations HENMT: Head: normal to inspection, No palpable skull fracture present, normocephalic and atraumatic Ears: hearing grossly normal bilaterally and external ears normal Face/Nose/Sinus: Normal external nose present and Normal nares present Eyes: General: appearance normal, both eyes and all related structures Alignment and Position: alignment normal Periorbital: periorbital findings normal Eyelids: eyelids normal Sclera: sclerae normal Pupils: Equal, round and reactive pupils present EOM: EOMs intact bilaterally Neck: Neck: normal visual inspection, full ROM, no lymphadenopathy, trachea midline and supple Chest: Chest palpation & inspection: normal inspection of the chest Resp: Effort & Inspection: normal respiratory effort Auscultation: clear to auscultation bilaterally Cardio: Palpation: normal PMI Rate: regular rate Rhythm: regular rhythm Heart sounds: S1 normal heart sound present and S2 normal heart sound present Peripheral pulses: Peripheral pulses 2+ throughout GI: Inspection: normal to inspection Auscultation: normal bowel sounds Rectal Exam: deferred Back/Spine/Pelvis: Cervical Spine: cervical ROM normal Skin: General skin exam: normal color Lesions: no lesions Rashes: no rashes Trauma: no lacerations or abrasions Wounds: no wounds Hair: normal Nails: normal Neuro: General: oriented to person, oriented to place, oriented to time and patient oriented x3 Cranial nerves: Yes Equal, round and reactive pupils present and Yes Normal hearing present Cognition (Neuro): abnormal cognition (Forgetful today) Speech: normal speech Motor exam (neuro): 5/5 motor strength present throughout Sensory Exam: normal sensation Other: When I hold my finger in front of his face he stated that he sees my finger fine but then my head is doubled. He has some lateral nystagmus to the left eye. The patient is doing some word searching. The patient has difficulty concentrating. Patient has essential tremors of his hands and arms. Valerie
[2022-04-12] MEDS: PRIMIDONE 250 MG TABLET PO ×2 (13:18→22:24)
--- NOTE | 2022-04-12 13:44 | WPDNEUROLOGY ---
Neurology EEG Report General Information Date of Study: 04/12/22 TEST eeg
--- NOTE | 2022-04-12 13:47 | WPDNEUROLOGY ---
Neurology EEG Report General Information Date of Study: 04/12/22 TEST eeg DIAGNOSIS Seizure disorder CONDITION OF RECORDING awake drowsy and sleep EEG NUMBER [id number] CLINICAL HISTORY patient reports he has a history of grand mal seizure but has not had 1 in over 7 years yesterday he was at work when he began having facial twitching along with slurred speech and weakness EEG DESCRIPTION basic resting occipital frequency consists of low to medium voltage 8 to 9 hertz per 2nd alpha admixed with low-voltage 15 to 18 hertz per 2nd beta. During drowsiness low-voltage beta activity seen diffusely admixed with waxing and waning posterior alpha rhythm. Bilateral symmetrical sleep activity seen during sleep. Hyperventilation not done. Photic stimulation not done. Non paroxysmal. Nonfocal. Nonlateralizing. IMPRESSION No significant abnormalities noted
[2022-04-12] MEDS: FLUTICASONE PROPIONATE 0.05% NA SPR 16 GM BTL (*BKC) 1 SPRAY NASAL (16:32)
[2022-04-12] MEDS: traZODone HCL 50 MG TABLET PO (22:24)
[2022-04-12] MEDS: DIVALPROEX SODIUM ER 250 MG TAB.24H PO (22:24)
[2022-04-13] VITALS (10 sets, daily range): BP systolic 102–114; BP diastolic 63–86; PULSE 61–73; RESP 18–20; TEMP 36.4–36.7; O2SAT 96–97
[2022-04-13] MEDS: PREGABALIN (*CRX) 75 MG CAPSULE 150 MG PO ×2 (08:09→21:57)
[2022-04-13] MEDS: BUPRENORPHINE HCL (*CRX) 2 MG SUBLINGUAL TABLET PO ×2 (08:09→17:37)
[2022-04-13] MEDS: FLUTICASONE PROPIONATE 0.05% NA SPR 16 GM BTL (*BKC) 1 SPRAY NASAL ×2 (08:09→17:42)
[2022-04-13] MEDS: buPROPion HCL XL (24 HR) 150 MG TABCR 300 MG PO (08:10)
[2022-04-13] MEDS: MESALAMINE 400 MG DELAYED RELEASE CAPSULE 1600 MG PO ×3 (08:10→17:43)
[2022-04-13] MEDS: busPIRone HCL 10 MG TABLET PO ×3 (08:11→17:43)
[2022-04-13] MEDS: TAMSULOSIN HCL 0.4 MG CAPSULE PO (08:11)
[2022-04-13] MEDS: DIVALPROEX SODIUM ER 500 MG TAB.24H PO (08:12)
[2022-04-13] MEDS: PRIMIDONE 250 MG TABLET PO ×3 (08:13→21:59)
[2022-04-13] MEDS: ASPIRIN 81 MG ENTERIC TABLET PO (09:35)
[2022-04-13] MEDS: ACETAMINOPHEN 325 MG TABLET 650 MG PO (09:35)
--- NOTE | 2022-04-13 12:29 | PM.IMPN ---
Progress Note: A&P Assessment and Plan (1) Seizure: Code(s): R56.9 - Unspecified convulsions Status: Acute Assessment and Plan: -neurology to see the patient -eeg has been ordered. -Ativan p.r.n. for seizures -valporic acid level was slightly low at 42. -continue with primidone (2) Depression with anxiety: Code(s): F41.8 - Other specified anxiety disorders Status: Acute Assessment and Plan: -continue with BuSpar and bupropion -until we can get his home medications reconciled. I started him on p.r.n. hydroxyzine (3) Crohn disease: Code(s): K50.90 - Crohn's disease, unspecified, without complications Status: Acute Assessment and Plan: -continue with Mesalamine (4) Neuropathy: Code(s): G62.9 - Polyneuropathy, unspecified Status: Acute Assessment and Plan: -continue with gabapentin if patient is still on that medication. (5) BPH (benign prostatic hyperplasia): Code(s): N40.0 - Benign prostatic hyperplasia without lower urinary tract symptoms Status: Acute Assessment and Plan: -continue with tamsulosin (6) Tremors of nervous system: Code(s): R25.1 - Tremor, unspecified Status: Acute Assessment and Plan: -continue with home medications. (7) Chronic pain: Code(s): G89.29 - Other chronic pain Status: Acute Assessment and Plan: The patient stated that he is on methadone. Once we have the medications verify then we can restart that. (8) CVA (cerebral vascular accident): Code(s): I63.9 - Cerebral infarction, unspecified Status: Acute Assessment and Plan: Aspirin (9) Port-A-Cath in place: Code(s): Z95.828 - Presence of other vascular implants and grafts Status: Acute Assessment and Plan: Positive blood culture. Question contamination. Await results. Not septic Subjective Date/time seen: 04/13/22 12:29 No complaints Exam Const: General: cooperative, comfortable, no acute distress, well developed, alert, awake, Physically active, ill appearing, average body habitus and well nourished Nutritional Appearance: average body habitus and well nourished Orientation/consciousness: oriented to person, oriented to place, oriented to time and patient oriented x3 Limitations: no limitations HENMT: Head: normal to inspection, No palpable skull fracture present, normocephalic and atraumatic Ears: hearing grossly normal bilaterally and external ears normal Face/Nose/Sinus: Normal external nose present and Normal nares present Eyes: General: appearance normal, both eyes and all related structures Alignment and Position: alignment normal Periorbital: periorbital findings normal Eyelids: eyelids normal Sclera: sclerae normal Pupils: Equal, round and reactive pupils present EOM: EOMs intact bilaterally Neck: Neck: normal visual inspection, full ROM, no lymphadenopathy, trachea midline and supple Chest: Chest palpation & inspection: normal inspection of the chest Resp: Effort & Inspection: normal respiratory effort Auscultation: clear to auscultation bilaterally Cardio: Palpation: normal PMI Rate: regular rate Rhythm: regular rhythm Heart sounds: S1 normal heart sound present and S2 normal heart sound present Peripheral pulses: Peripheral pulses 2+ throughout GI: Inspection: normal to inspection Auscultation: normal bowel sounds Rectal Exam: deferred Back/Spine/Pelvis: Cervical Spine: cervical ROM normal Skin: General skin exam: normal color Lesions: no lesions Rashes: no rashes Trauma: no lacerations or abrasions Wounds: no wounds Hair: normal Nails: normal Neuro: General: oriented to person, oriented to place, oriented to time and patient oriented x3 Cranial nerves: Yes Equal, round and reactive pupils present and Yes Normal hearing present Cognition (Neuro): abnormal cognition (Forgetful today) Speech: normal speech Motor exam (neuro): 5
[2022-04-13] MEDS: traZODone HCL 50 MG TABLET PO (21:57)
[2022-04-13] MEDS: DIVALPROEX SODIUM ER 250 MG TAB.24H PO (21:57)
[2022-04-14] VITALS (9 sets, daily range): BP systolic 118–145; BP diastolic 54–85; PULSE 62–71; RESP 18; TEMP 36.2–36.6; O2SAT 96–98
[2022-04-14] MEDS: ACETAMINOPHEN 325 MG TABLET 650 MG PO (02:14)
[2022-04-14] MEDS: PREGABALIN (*CRX) 75 MG CAPSULE 150 MG PO ×2 (09:37→20:48)
[2022-04-14] MEDS: FLUTICASONE PROPIONATE 0.05% NA SPR 16 GM BTL (*BKC) 1 SPRAY NASAL ×2 (09:37→16:41)
[2022-04-14] MEDS: PRIMIDONE 250 MG TABLET PO (09:37)
[2022-04-14] MEDS: ASPIRIN 81 MG ENTERIC TABLET PO (09:37)
[2022-04-14] MEDS: busPIRone HCL 10 MG TABLET PO ×3 (09:37→16:41)
[2022-04-14] MEDS: buPROPion HCL XL (24 HR) 150 MG TABCR 300 MG PO (09:37)
[2022-04-14] MEDS: DIVALPROEX SODIUM ER 500 MG TAB.24H PO (09:37)
[2022-04-14] MEDS: MESALAMINE 400 MG DELAYED RELEASE CAPSULE 1600 MG PO ×2 (09:38→16:42)
[2022-04-14] MEDS: TAMSULOSIN HCL 0.4 MG CAPSULE PO (09:50)
--- NOTE | 2022-04-14 10:39 | PM.IMPN ---
Progress Note: A&P Assessment and Plan (1) Seizure: Code(s): R56.9 - Unspecified convulsions Status: Acute Assessment and Plan: Workup unrevealing (2) Depression with anxiety: Code(s): F41.8 - Other specified anxiety disorders Status: Acute Assessment and Plan: -continue with BuSpar and bupropion -until we can get his home medications reconciled. I started him on p.r.n. hydroxyzine (3) Crohn disease: Code(s): K50.90 - Crohn's disease, unspecified, without complications Status: Acute Assessment and Plan: -continue with Mesalamine (4) Neuropathy: Code(s): G62.9 - Polyneuropathy, unspecified Status: Acute Assessment and Plan: -continue with gabapentin if patient is still on that medication. (5) BPH (benign prostatic hyperplasia): Code(s): N40.0 - Benign prostatic hyperplasia without lower urinary tract symptoms Status: Acute Assessment and Plan: -continue with tamsulosin (6) Tremors of nervous system: Code(s): R25.1 - Tremor, unspecified Status: Acute Assessment and Plan: -continue with home medications. (7) Chronic pain: Code(s): G89.29 - Other chronic pain Status: Acute Assessment and Plan: The patient stated that he is on methadone. Once we have the medications verify then we can restart that. (8) CVA (cerebral vascular accident): Code(s): I63.9 - Cerebral infarction, unspecified Status: Acute Assessment and Plan: Aspirin (9) Port-A-Cath in place: Code(s): Z95.828 - Presence of other vascular implants and grafts Status: Acute Assessment and Plan: Positive blood culture. Question contamination. Await results. Not septic Vancomycin Subjective Date/time seen: 04/14/22 10:39 No complaints Review of Systems Review of Systems: All systems reviewed & are unremarkable except as noted in HPI and below Constitutional: Constitutional: Reports as per HPI and Reports no additional constitutional complaints Eyes: Eyes: Reports as per HPI and Reports no additional eye complaints ENT: Reports system reviewed and no additional complaints, except as documented and Reports Normal hearing present Cardiovascular: Cardiovascular: Reports no additional cardiovascular complaints Respiratory: Respiratory: Reports no additional respiratory complaints and Reports no additional respiratory complaints Gastrointestinal: Gastrointestinal: Reports as per HPI and Reports no additional gastrointestinal complaints Musculoskeletal: Musculoskeletal: Reports no additional musculoskeletal complaints Integumentary/Breasts: Skin/Breast: Reports system reviewed and no additional complaints, except as docu and Reports as per HPI Neurologic: Reports system reviewed and no additional complaints, except as documented, Reports as per HPI and Reports Normal hearing present Psychiatric: Psychiatric: Reports no additional psychiatric complaints and Reports as per HPI Endocrine: Endocrine: Reports no additional endocrine complaints Hematologic/Lymphatic: Hematologic/Lymphatic: Reports no additional hematologic/lymphatic complaints Allergic/Immunologic: Allergic/Immunologic: Reports no additional allergic/immunologic complaints Exam Narrative: revealed him to be awake alert cooperative in no obvious acute distress, his speech nor dysphasic not dysarthric not dysphonic, able to move both upper and lower extremity with symmetrical reflexes and downgoing plantar responses heart regular with no murmur lungs clear to auscultation abdomen is soft with no organomegaly Const: General: cooperative, comfortable, no acute distress, well developed, alert, awake, Physically active, ill appearing, average body habitus and well nourished Nutritional Appearance: average body habitus and well nourished Orientation/consciousness: oriented to person, oriented to place, oriented to time and
[2022-04-14] MEDS: BUPRENORPHINE HCL (*CRX) 2 MG SUBLINGUAL TABLET PO ×2 (11:30→16:42)
--- NOTE | 2022-04-14 14:15 | WPDNEUROPN ---
Progress Note: A&P Assessment and Plan (1) CVA (cerebral vascular accident): Code(s): I63.9 - Cerebral infarction, unspecified Status: Acute (2) Chronic pain: Code(s): G89.29 - Other chronic pain Status: Acute (3) Tremors of nervous system: Code(s): R25.1 - Tremor, unspecified Status: Acute (4) Neuropathy: Code(s): G62.9 - Polyneuropathy, unspecified Status: Acute (5) Crohn disease: Code(s): K50.90 - Crohn's disease, unspecified, without complications Status: Acute (6) Depression with anxiety: Code(s): F41.8 - Other specified anxiety disorders Status: Acute (7) Seizure: Code(s): R56.9 - Unspecified convulsions Status: Acute Plan 1 anxiety with depression 2 seizures 3 Crohn's disease for neuropathy 5 nonspecific tremor with chronic pain 6 at present being treated for the positive blood culture till the final reports are obtained Subjective Date/time seen: 04/14/22 14:15 Interval history: 51 years old with history of seizures and difficulties in speech with involuntary movements documented valproic acid level of 42, normal EEG in addition to the MRI of the brain revealing left paramedian pontine subtle infarct but normal Doppler studies of the carotid patient at present receiving vancomycin intravenously in addition to BuSpar 10 mg 3 times a day Wellbutrin 300 mg daily divalproex 500 mg daily and 250 mg at night in addition in addition to pregabalin 150 mg q.12 hours trazodone 50 mg Hs and aspirin 81 mg daily. Does have ongoing history of anxiety with depression, Crohn's disease for which he is taking the mesalamine, neuropathic pain benign prostatic hypertrophy and unspecified tremors Exam Narrative: on examination remains awake alert cooperative in no obvious acute distress, his speech nor dysphasic not dysarthric not dysphonic, the cranial nerve examination is normal so as the motor and sensory examination reflexes symmetrical and the treatment will be continued as such Objective Data Vital Signs Vital Signs: Vital Signs - 24 hr 04/13/22 16:00 04/13/22 19:42 04/13/22 20:00 Temperature Pulse Rate 63 63 71 Respiratory Rate 20 Blood Pressure Pulse Oximetry 96 Oxygen Delivery Room Air 04/13/22 22:31 04/14/22 00:00 04/14/22 04:00 Temperature 36.7 C Pulse Rate 72 68 63 Respiratory Rate 18 Blood Pressure 113/86 Pulse Oximetry 97 Oxygen Delivery 04/14/22 06:00 04/14/22 09:40 04/14/22 08:00 Temperature 36.6 C Pulse Rate 65 66 Respiratory Rate 18 Blood Pressure 144/54 H Pulse Oximetry 96 Oxygen Delivery Room Air 04/14/22 12:00 Temperature Pulse Rate 62 Respiratory Rate Blood Pressure Pulse Oximetry Oxygen Delivery Intake/Output Intake/Output: Intake & Output 04/11/22 04/12/22 04/13/22 04/14/22 23:59 23:59 23:59 23:59 Intake Total 1430 1736 990 Output Total 700 Balance -700 1430 1736 990 Meds/Results Medications: Active Medications Generic Name Dose Route Start Last Admin Trade Name Freq PRN Reason Stop Dose Admin Acetaminophen 650 mg 04/13/22 08:22 04/14/22 02:14 Acetaminophen 325 Mg Tablet PO 650 mg Q6H PRN Administration Pain or Fever Aspirin 81 mg 04/13/22 09:00 04/14/22 09:37 Aspirin 81 Mg Enteric Tablet PO 81 mg QAM MARIA DEL CARMEN Administration Buprenorphine HCl 2 mg 04/11/22 22:25 04/14/22 11:30 Buprenorphine Hcl (*Crx) 2 Mg Sublingual Tablet PO 2 mg BID MARIA DEL CARMEN Administration Bupropion HCl 300 mg 04/12/22 09:00 04/14/22 09:37 Bupropion Hcl Xl (24 Hr) 150 Mg Tabcr PO 300 mg QAM MARIA DEL CARMEN Administration Buspirone HCl 10 mg 04/12/22 09:00 04/14/22 09:37 Buspirone Hcl 10 Mg Tablet PO 10 mg TID MARIA DEL CARMEN Administration Divalproex Sodium 500 mg 04/12/22 08:00 04/14/22 09:37 Divalproex Sodium Er 500 Mg Tab.24h PO 500 mg DAILY@0800 [facility] Administration Divalproex Sodium 250 mg 04/11/22 2
--- NOTE | 2022-04-14 16:37 | PC.NURSE ---
patient states that family member will bring fluvoxamine from home.
--- NOTE | 2022-04-14 17:50 | PHAR ---
HOME MED FLUVOXAMINE 100 MG TAB VERIFIED BY PHARMACY
[2022-04-14] MEDS: DIVALPROEX SODIUM ER 250 MG TAB.24H PO (20:48)
[2022-04-14] MEDS: traZODone HCL 50 MG TABLET PO (20:49)
[2022-04-15] VITALS: PULSE 65
[2022-04-15 02:01] LABS: Vancomycin Trough 10.7 ug/mL (10.0-20.0)
[2022-04-15 04:00] VITALS: PULSE 59
[2022-04-15] MEDS: ACETAMINOPHEN 325 MG TABLET 650 MG PO (04:41)
[2022-04-15 06:00] VITALS: BP 122/67; PULSE 61; RESP 18; TEMP 36.1; O2SAT 96
[2022-04-15 06:20] LABS: Estimated CRCL calculation 156 ml/min; Estimated Glomerular Filt Rate > 60
[2022-04-15 08:00] VITALS: PULSE 58
[2022-04-15] MEDS: DIVALPROEX SODIUM ER 500 MG TAB.24H PO (08:46)
[2022-04-15] MEDS: MESALAMINE 400 MG DELAYED RELEASE CAPSULE 1600 MG PO ×2 (08:47→12:16)
[2022-04-15] MEDS: FLUTICASONE PROPIONATE 0.05% NA SPR 16 GM BTL (*BKC) 1 SPRAY NASAL (08:53)
[2022-04-15] MEDS: ASPIRIN 81 MG ENTERIC TABLET PO (08:54)
[2022-04-15] MEDS: buPROPion HCL XL (24 HR) 150 MG TABCR 300 MG PO (08:54)
[2022-04-15] MEDS: busPIRone HCL 10 MG TABLET PO ×2 (08:55→12:16)
[2022-04-15 08:58] VITALS: RESP 18; O2SAT 96
[2022-04-15] MEDS: PREGABALIN (*CRX) 75 MG CAPSULE 150 MG PO (08:58)
[2022-04-15] MEDS: BUPRENORPHINE HCL (*CRX) 2 MG SUBLINGUAL TABLET PO (08:58)
[2022-04-15 12:04] VITALS: PULSE 65
--- NOTE | 2022-04-15 12:05 | PM.DS ---
DS: Admitting Diagnosis Discharge Date April 15, 2022 Admitting Diagnosis CVA DS: Discharge Diagnosis Discharge Diagnosis (1) Seizure: Code(s): R56.9 - Unspecified convulsions Status: Acute Assessment and Plan: Workup unrevealing (2) Depression with anxiety: Code(s): F41.8 - Other specified anxiety disorders Status: Acute Assessment and Plan: -continue with BuSpar and bupropion -until we can get his home medications reconciled. I started him on p.r.n. hydroxyzine (3) Crohn disease: Code(s): K50.90 - Crohn's disease, unspecified, without complications Status: Acute Assessment and Plan: -continue with Mesalamine (4) Neuropathy: Code(s): G62.9 - Polyneuropathy, unspecified Status: Acute Assessment and Plan: -continue with gabapentin if patient is still on that medication. (5) BPH (benign prostatic hyperplasia): Code(s): N40.0 - Benign prostatic hyperplasia without lower urinary tract symptoms Status: Acute Assessment and Plan: -continue with tamsulosin (6) Tremors of nervous system: Code(s): R25.1 - Tremor, unspecified Status: Acute Assessment and Plan: -continue with home medications. (7) Chronic pain: Code(s): G89.29 - Other chronic pain Status: Acute Assessment and Plan: The patient stated that he is on methadone. Once we have the medications verify then we can restart that. (8) CVA (cerebral vascular accident): Code(s): I63.9 - Cerebral infarction, unspecified Status: Acute Assessment and Plan: Aspirin (9) Port-A-Cath in place: Code(s): Z95.828 - Presence of other vascular implants and grafts Status: Acute Assessment and Plan: Positive blood culture. Question contamination. Await results. Not septic Vancomycin DS: Summary Hospital Course Hospital Course: Patient is a 51-year-old male who came in with history of involuntary movement of his extremities. MRI did reveal small stroke. Neurology was consulted recommended aspirin therapy. Symptoms have subsequently resolved. Pain to note patient did also have positive blood cultures and he does have a chronic port for infusions for autoimmune disease. Cultures only grew 1 of 2 positive with Staph epi. This was viewed to be likely contaminant antibiotics were stopped he was never 6 systemically. Patient can be discharged home. Time Spent with Patient Time attestation: Total time spent providing and/or coordinating discharge services: Exam Narrative: revealed him to be awake alert cooperative in no obvious acute distress, his speech nor dysphasic not dysarthric not dysphonic, able to move both upper and lower extremity with symmetrical reflexes and downgoing plantar responses heart regular with no murmur lungs clear to auscultation abdomen is soft with no organomegaly Const: General: cooperative, comfortable, no acute distress, well developed, alert, awake, Physically active, ill appearing, average body habitus and well nourished Nutritional Appearance: average body habitus and well nourished Orientation/consciousness: oriented to person, oriented to place, oriented to time and patient oriented x3 Limitations: no limitations HENMT: Head: normal to inspection, No palpable skull fracture present, normocephalic and atraumatic Ears: hearing grossly normal bilaterally and external ears normal Face/Nose/Sinus: Normal external nose present and Normal nares present Eyes: General: appearance normal, both eyes and all related structures Alignment and Position: alignment normal Periorbital: periorbital findings normal Eyelids: eyelids normal Sclera: sclerae normal Pupils: Equal, round and reactive pupils present EOM: EOMs intact bilaterally Neck: Neck: normal visual inspection, full ROM, no lymphadenopathy, trachea midline and supple Chest: Chest palpation & inspection: normal inspectio
[2022-04-15] MEDS: PRIMIDONE 250 MG TABLET PO (12:17)
== END 2022-04-15 14:10 | disposition home or self-care (01) | DRG 65 ==
LOC: ANHED 15:04 → ANH2MED 17:57
PROVIDERS: Admitting Provider Internal Medicine; Emergency Provider Emergency Medicine; PCP Internal Medicine; Visit Provider Chiropractor
DX: I63.9 Cerebral infarction, unspecified (principal); K50.90 Crohn's disease, unspecified, without complications; N40.0 Benign prostatic hyperplasia without lower urinary tract symptoms; G40.909 Epilepsy, unspecified, not intractable, without status epilepticus; G89.29 Other chronic pain; R29.700 NIHSS score 0; F32.A Depression, unspecified; F10.21 Alcohol dependence, in remission; F41.9 Anxiety disorder, unspecified; Z20.822 Contact with and (suspected) exposure to COVID-19; Z87.891 Personal history of nicotine dependence; Z79.899 Other long term (current) drug therapy; Z95.828 Presence of other vascular implants and grafts
CPT/HCPCS: 36415; 70450; 70553; 71045; 80053; 80164; 80202; 82565; 82948; 84484; 85025; 85610; 85730; 87040; 87147; 87181; 87186; 87637; 93005; 93306; 93880; 95816; 96374; 99285; A9270; A9577; G0378; J1200; J1642; J3370

== ENCOUNTER 2023-08-13 08:06 | Outpatient (CLI) | payer OTHER, SELFPAY | END 2023-08-13 08:07 | disposition home or self-care (01) | PROVIDERS: PCP Internal Medicine; Visit Provider Internal Medicine | DX: E22.2 Syndrome of inappropriate secretion of antidiuretic hormone (principal) | CPT/HCPCS: 36415; 82533; 96372; J0834 ==

== ENCOUNTER 2023-09-01 13:05 | Outpatient (CLI) | payer OTHER, SELFPAY ==
--- NOTE | ~2023-09-01 | XR_ITS ---
XR lumbar spine 2-3V DATE: 09/01/2023 13:30 INDICATION: Twisted back yesterday. Low back pain. TECHNIQUE: AP, lateral, cone-down lateral lumbosacral views COMPARISON: 10/04/2022 MRI lumbar spine 09/24/2021 lumbar spine FINDINGS: Mild degenerative disc disease at L3-4, moderate degenerative disc disease L4-5 and L5-S1. No fracture or bone destruction or spondylolisthesis is evident. The included lower thoracic and lumb ar pedicles are intact. The sacroiliac joints are intact. Prominent amount of fecal material in the colon. IMPRESSION: Multilevel mild to moderate degenerative disc disease; no fracture Reviewed, dictated and finalized at location B.
== END 2023-09-01 13:06 | disposition home or self-care (01) ==
PROVIDERS: PCP Internal Medicine; Visit Provider Internal Medicine
DX: M51.36 Other intervertebral disc degeneration, lumbar region (principal); M51.37 Other intervertebral disc degeneration, lumbosacral region; X50.0XXA Overexertion from strenuous movement or load, initial encounter; Z85.51 Personal history of malignant neoplasm of bladder
CPT/HCPCS: 72100

== ENCOUNTER 2024-04-16 09:53 | Outpatient (CLI) | payer OTHER, SELFPAY ==
--- NOTE | ~2024-04-16 | XR_ITS ---
XR wrist RT min 3V Ordering provider: Valeriano Torres MD History: . RIGHT WRIST SPRAIN . Comparison: None. FINDINGS: BONES: No acute fracture or dislocation. No definite scaphoid fracture. JOINT SPACES: Normal. SOFT TISSUES: Normal. IMPRESSION: No acute osseous abnormality right wrist. Reviewed, dictated and finalized at location A. [employer]
== END 2024-04-16 09:54 | disposition home or self-care (01) ==
LOC: ANHIMG 09:58
PROVIDERS: PCP Internal Medicine; Visit Provider Internal Medicine
DX: S63.501A Unspecified sprain of right wrist, initial encounter (principal)
CPT/HCPCS: 73110